=== PATIENT | female | born 1975 | race Caucasian/White ===

== ENCOUNTER 2017-10-28 15:11 | Emergency (ER) | payer BC ==
[2017-10-28] MEDS ORDERED: Sodium Chloride 0.9% 2.5 ML Syringe FLUSH PRN (15:32)
[2017-10-28] MEDS ORDERED: Sodium Chloride 0.9% 10 ML Syringe FLUSH PRN (15:32)
--- NOTE | 2017-10-28 15:32 | EDM.PDOC ---
ED HPI GENERAL MEDICAL PROBLEM - General Chief Complaint: General Stated Complaint: SUGAR LEVEL IS HIGH Time Seen by Provider: 10/28/17 15:27 Source of Information: Reports: Patient History Limitations: Reports: No Limitations - History of Present Illness INITIAL COMMENTS - FREE TEXT/NARRATIVE: HISTORY AND PHYSICAL: []42-year-old female presenting with not feeling well she is short of breath History of Present Illness: []Patient states she had a UTI start on Wednesday and now this is she was treating herself with essential oils She started having nausea and vomited today Patient is complaining of abdominal pain Patient's primary care provider is Liza Osborne nurse practitioner at [facility] Review of Systems: As per history of present illness and below otherwise all systems reviewed and negative. Past medical history: As per history of present illness and as reviewed below otherwise noncontributory. Surgical history: As per history of present illness and as reviewed below otherwise noncontributory. Social history: No reported history of drug or alcohol abuse. Family history: As per history of present illness and as reviewed below otherwise noncontributory. Physical exam: HEENT: Atraumatic, normocehpalic, pupils reactive, negative for conjunctival pallor or scleral icterus, mucous membranes moist, throat clear, neck supple, nontender, trachea midline. Lungs: Clear to auscultation, breath sounds equal bilaterally, chest non tender. Heart: S1S2, regular, negative for clicks, rubs, or JVD. Abdomen: Soft, nondistended, nontender. Negative for masses or hepatossplenmegaly. Negative for costovertebral tenderness. Pelvis: Stable nontender. Genitourinary: Deferred. Rectal: Deferred Extremities: Atraumatic, negative for cords or calf pain. Neurovascular unremarkable. Neuro: Awake, alert, oriented. Cranial nerves II through XII unremarkable. Cerebellum unremarkable. Motor and sensory unremarkable throughout. Exam nonfocal. Discussed this case with our hospitalist Dr. Lux and there are no ICU beds available Has talked to Dr. Hyde at [place] [facility] and he is accepted this patient for care Scans with the patient and her son and then her per telephone the concerns on the acuity level of this patient that she needs to have closer follow-up than what is available here at this establishment. Diagnostics: []CBC CMP UA urine culture amylase lipase Therapeutics: []1 L normal saline Zofran Insulin 10 units subcutaneous Impression: []DKA New-onset diabetes Plan: []Transfer to [facility] Dr. Mejia has accepted patient Definitive disposition and diagnosis as appropriate pending reevaluation and review of above. Onset: Gradual Duration: Day(s): (4) Location: Reports: Generalized Severity: Moderate Improves with: Reports: None Worsens with: Reports: None Associated Symptoms: Reports: Loss of Appetite, Malaise Generalized Pain Score (Numeric/FACES): 8 - Related Data Allergies Allergy/AdvReac Type Severity Reaction Status Date / Time No Known Allergies Allergy Verified 04/13/15 14:09 Home Meds: Home Meds Montelukast [Singulair] 1 tab PO DAILY 04/13/15 [History] carBAMazepine [Carbamazepine ER] 1 tab PO DAILY 04/13/15 [History] Past Medical History Respiratory History: Reports: Asthma Neurological History: Reports: Seizure - Past Surgical History GI Surgical History: Reports: Other (See Below) Female Surgical History: Reports: Section ED ROS GENERAL - Review of Systems Review Of Systems: ROS reveals no pertinent complaints other than HPI. ED EXAM, GENERAL - Physical Exam Exam: See Below (See dictation) Course - Vital Signs Last Recorded V/S: Last Vital Signs Temp 37.0 C 10/28/17 15:20 Pulse 151 H 10/28/17 16:53 Resp 28 H 10/28/17 16:53 BP 161/87 H 10/28/17 16:53 Pulse Ox 95 10/28/17 16:53 - Orders/Labs/Meds Orders: Active Orders 24 hr Category Date Time Status AMYLASE [CHEM] Stat Lab 10/28/17 15:43 Received COMPREHENSIVE METABOLIC PN,CMP [CHEM] Stat Lab 10/28/17 15:43 Received CULTURE URINE [RM] Stat Lab 10/28/17 15:50 Received HCG QUALITATIVE,URINE [URCHEM] Stat Lab 10/28/17 15:50 Ordered LIPASE [CHEM] Stat Lab 10/28/17 15:43 Received UA W/MICROSCOPIC [URIN] Stat Lab 10/28/17 15:32 Ordered Insulin Regular, Human [NovoLIN R] 100 unit Med 10/28/17 17:15 Ordered Sodium Chloride 0.9% [Normal Saline] 99 ml IV TITRATE Sodium Chloride 0.9% [Normal Saline] 1,000 ml Med 10/28/17 16:41 Active IV STAT Sodium Chloride 0.9% [Saline Flush] Med 10/28/17 15:32 Active 10 ml FLUSH ASDIRECTED PRN Sodium Chloride 0.9% [Saline Flush] Med 10/28/17 15:32 Active 2.5 ml FLUSH ASDIRECTED PRN Saline Lock Insert [OM.PC] Stat Oth 10/28/17 15:32 Ordered Medication Orders Sodium Chloride (Normal Saline) 1,000 mls @ 999 mls/hr IV STAT ONE Stop: 10/28/17 17:41 Last Admin: 10/28/17 16:52 Dose: 999 mls/hr Insulin Human Regular 100 unit (/ Sodium Chloride) 100 mls @ 8.43 mls/hr IV TITRATE LISA; Protocol Sodium Chloride (Saline Flush) 10 ml FLUSH ASDIRECTED PRN PRN Reason: Keep Vein Open Last Admin: 10/28/17 15:40 Dose: 10 ml Sodium Chloride (Saline Flush) 2.5 ml FLUSH ASDIRECTED PRN PRN Reason: Keep Vein Open Last Admin: 10/28/17 15:40 Dose: 2.5 ml Labs: Laboratory Tests 10/28/17 10/28/17 10/28/17 Range/Units 15:22 15:32 15:43 WBC 20.48 H (4.0-11.0) K/uL RBC 5.04 (4.30-5.90) M/uL Hgb 17.1 H (12.0-16.0) g/dL Hct 47.5 H (36.0-46.0) % MCV 94.2 (80.0-98.0) fL MCH 33.9 H (27.0-32.0) pg MCHC 36.0 (31.0-37.0) g/dL RDW Std Deviation 45.3 (28.0-62.0) fl RDW Coeff of Shwetha 13 (11.0-15.0) % Plt Count 300 (150-400) K/uL MPV 12.20 H (7.40-12.00) fL Add Manual Diff YES Neutrophils % (Manual) 85 H (48.0-80.0) % Lymphocytes % (Manual) 12 L (16.0-40.0) % Monocytes % (Manual) 3 (0.0-15.0) % Nucleated RBC % 0.0 /100WBC Absolute Seg Neuts 17.4 H (1.4-5.7) Lymphocytes # (Manual) 2.5 H (0.6-2.4) Monocytes # (Manual) 0.6 (0.0-0.8) Nucleated RBCs # 0 K/uL ABG pH (7.35-7.45) ABG pCO2 (35-45) mmHG ABG pO2 (75-100) mmHG ABG HCO3 (22-26) mEq/L ABG Total CO2 ABG Base Excess (-2.0-2.0) Sodium (136-145) mmol/L Potassium (3.5-5.1) mmol/L Chloride (98-107) mmol/L Carbon Dioxide (21.0-32.0) mmol/L BUN (7.0-18.0) mg/dL Creatinine (0.6-1.0) mg/dL Est Cr Clr Drug Dosing mL/min Estimated GFR (MDRD) ml/min Glucose (74-106) mg/dL POC Glucose 458 H (60-110) mg/dL Calcium (8.5-10.1) mg/dL Total Bilirubin (0.2-1.0) mg/dL AST (15-37) IU/L Alkaline Phosphatase (46-116) U/L Total Protein (6.4-8.2) g/dL Albumin (3.4-5.0) g/dL Globulin (2.0-3.5) g/dL Albumin/Globulin Ratio (1.3-2.8) Amylase (25-115) U/L Lipase (73-393) U/L Urine Color YELLOW Urine Appearance CLEAR Urine pH 5.5 (5.0-8.0) Ur Specific Keyser >= 1.030 (1.001-1.035) Urine Protein 100 (NEGATIVE) mg/dL Urine Glucose (UA) 500 H (NEGATIVE) mg/dL Urine Ketones >=80 (NEGATIVE) mg/dL Urine Occult Blood MODERATE (NEGATIVE) Urine Nitrite NEGATIVE (NEGATIVE) Urine Bilirubin SMALL H (NEGATIVE) Urine Ictotest NEGATIVE Urine Urobilinogen 0.2 (<2.0) EU/dL Ur Leukocyte Esterase NEGATIVE (NEGATIVE) Urine RBC 0-2 (0-2/HPF) Urine WBC 1-2 (0-5/HPF) Ur Epithelial Cells OCCASIONAL (NONE-FEW) Urine Bacteria FEW (NEGATIVE) Urine HCG, Qual (NEGATIVE) 10/28/17 10/28/17 10/28/17 Range/Units 15:43 15:50 16:15 WBC (4.0-11.0) K/uL RBC (4.30-5.90) M/uL Hgb (12.0-16.0) g/dL Hct (36.0-46.0) % MCV (80.0-98.0) fL MCH (27.0-32.0) pg MCHC (31.0-37.0) g/dL RDW Std Deviation (28.0-62.0) fl RDW Coeff of Shwetha (11.0-15.0) % Plt Count (150-400) K/uL MPV (7.40-12.00) fL Add Manual Diff Neutrophils % (Manual) (48.0-80.0) % Lymphocytes % (Manual) (16.0-40.0) % Monocytes % (Manual) (0.0-15.0) % Nucleated RBC % /100WBC Absolute Seg Neuts (1.4-5.7) Lymphocytes # (Manual) (0.6-2.4) Monocytes # (Manual) (0.0-0.8) Nucleated RBCs # K/uL ABG pH 7.064 L* (7.35-7.45) ABG pCO2 12 L (35-45) mmHG ABG pO2 133 H (75-100) mmHG ABG HCO3 3 L (22-26) mEq/L ABG Total CO2 3.3 ABG Base Excess -24.5 L (-2.0-2.0) Sodium 129 L (136-145) mmol/L Potassium 5.5 H (3.5-5.1) mmol/L Chloride 93 L (98-107) mmol/L Carbon Dioxide 4.2 L (21.0-32.0) mmol/L BUN 17 (7.0-18.0) mg/dL Creatinine 1.2 H (0.6-1.0) mg/dL Est Cr Clr Drug Dosing 47.81 mL/min Estimated GFR (MDRD) 49.0 ml/min Glucose 511 H* (74-106) mg/dL POC Glucose (60-110) mg/dL Calcium 10.5 H (8.5-10.1) mg/dL Total Bilirubin 0.7 (0.2-1.0) mg/dL AST 25 (15-37) IU/L Alkaline Phosphatase 159 H (46-116) U/L Total Protein 8.8 H (6.4-8.2) g/dL Albumin 4.2 (3.4-5.0) g/dL Globulin 4.6 H (2.0-3.5) g/dL Albumin/Globulin Ratio 0.9 L (1.3-2.8) Amylase 117 H (25-115) U/L Lipase 1845 H (73-393) U/L Urine Color Urine Appearance Urine pH (5.0-8.0) Ur Specific Keyser (1.001-1.035) Urine Protein (NEGATIVE) mg/dL Urine Glucose (UA) (NEGATIVE) mg/dL Urine Ketones (NEGATIVE) mg/dL Urine Occult Blood (NEGATIVE) Urine Nitrite (NEGATIVE) Urine Bilirubin (NEGATIVE) Urine Ictotest Urine Urobilinogen (<2.0) EU/dL Ur Leukocyte Esterase (NEGATIVE) Urine RBC (0-2/HPF) Urine WBC (0-5/HPF) Ur Epithelial Cells (NONE-FEW) Urine Bacteria (NEGATIVE) Urine HCG, Qual NEGATIVE (NEGATIVE) Meds: Medications Generic Name Dose Route Start Last Admin Trade Name Freq PRN Reason Stop Dose Admin Sodium Chloride 1,000 mls @ 999 mls/hr 10/28/17 16:41 10/28/17 16:52 Normal Saline IV 10/28/17 17:41 999 mls/hr STAT ONE Administration Insulin Human Regular 100 unit 100 mls @ 8.43 mls/hr 10/28/17 17:15 / Sodium Chloride IV TITRATE LISA Protocol 0.1 UNIT/KG/HR Sodium Chloride 10 ml 10/28/17 15:32 10/28/17 15:40 Saline Flush FLUSH 10 ml ASDIRECTED PRN Administration Keep Vein Open Sodium Chloride 2.5 ml 10/28/17 15:32 10/28/17 15:40 Saline Flush FLUSH 2.5 ml ASDIRECTED PRN Administration Keep Vein Open Discontinued Medications Generic Name Dose Route Start Last Admin Trade Name Freq PRN Reason Stop Dose Admin Sodium Chloride 1,000 mls @ 999 mls/hr 10/28/17 15:37 10/28/17 15:40 Normal Saline IV 10/28/17 16:37 999 mls/hr STAT ONE Administration Piperacillin Sod/Tazobactam 50 mls @ 100 mls/hr 10/28/17 16:26 10/28/17 16:58 Sod 3.375 gm/ Sodium Chloride IV 10/28/17 16:55 100 mls/hr ONETIME ONE Administration Insulin Human Regular 10 unit 10/28/17 16:14 10/28/17 16:24 Novolin R IVPUSH 10/28/17 16:15 10 units ONETIME ONE Administration Protocol Insulin Human Regular 10 unit 10/28/17 16:56 Novolin R IVPUSH 10/28/17 16:57 ONETIME ONE Protocol Ondansetron HCl 4 mg 10/28/17 15:37 10/28/17 15:43 Zofran IVPUSH 10/28/17 15:38 4 mg ONETIME ONE Administration Departure - Departure Time of Disposition: 17:18 Disposition: DC/Tfer to Acute Hospital 02 Condition: Fair Clinical Impression: Ketoacidosis in diabetes mellitus - Discharge Information Referrals: PCP,None [Primary Care Provider] - Forms: ED Department Discharge - My Orders Last 24 Hours: My Active Orders 10/28/17 15:32 UA W/MICROSCOPIC [URIN] Stat Sodium Chloride 0.9% [Saline Flush] 10 ml FLUSH ASDIRECTED PRN Sodium Chloride 0.9% [Saline Flush] 2.5 ml FLUSH ASDIRECTED PRN Saline Lock Insert [OM.PC] Stat 10/28/17 15:43 AMYLASE [CHEM] Stat COMPREHENSIVE METABOLIC PN,CMP [CHEM] Stat LIPASE [CHEM] Stat 10/28/17 15:50 CULTURE URINE [RM] Stat HCG QUALITATIVE,URINE [URCHEM] Stat 10/28/17 16:41 Sodium Chloride 0.9% [Normal Saline] 1,000 ml IV STAT 10/28/17 17:15 Insulin Regular, Human [NovoLIN R] 100 unit Sodium Chloride 0.9% [Normal Saline] 99 ml IV TITRATE - Assessment/Plan Last 24 Hours: My Active Orders 10/28/17 15:32 UA W/MICROSCOPIC [URIN] Stat Sodium Chloride 0.9% [Saline Flush] 10 ml FLUSH ASDIRECTED PRN Sodium Chloride 0.9% [Saline Flush] 2.5 ml FLUSH ASDIRECTED PRN Saline Lock Insert [OM.PC] Stat 10/28/17 15:43 AMYLASE [CHEM] Stat COMPREHENSIVE METABOLIC PN,CMP [CHEM] Stat LIPASE [CHEM] Stat 10/28/17 15:50 CULTURE URINE [RM] Stat HCG QUALITATIVE,URINE [URCHEM] Stat 10/28/17 16:41 Sodium Chloride 0.9% [Normal Saline] 1,000 ml IV STAT 10/28/17 17:15 Insulin Regular, Human [NovoLIN R] 100 unit Sodium Chloride 0.9% [Normal Saline] 99 ml IV TITRATE
[2017-10-28] MEDS ORDERED: Ondansetron 4 MG/2 ML SDV IVPUSH ONE ×2 (15:37→17:48)
[2017-10-28] MEDS ORDERED: Sodium Chloride 0.9% 1,000 ML IV ONE ×2 (15:37→16:41)
[2017-10-28] MEDS ORDERED: Insulin Regular, Human 100 Units/ML 10 ML Vial IVPUSH ONE ×2 (16:14→16:56)
--- NOTE | 2017-10-28 16:20 | CR ---
EXAMINATION: Two-view chest (PA and Lateral views). HISTORY: Shortness of breath. FINDINGS: The trachea is midline. The cardiomediastinal silhouette is within normal limits. No pulmonary infilt rates, effusions or pneumothorax. Osseous structures appear unremarkable. IMPRESSION: No acute cardiopulmonary process.
[2017-10-28] MEDS ORDERED: Piperacillin/Tazobactam 3.375 GM in Sodium Chloride 0.9% 50 ML IV ONE (16:26)
[2017-10-28 16:55] VITALS: BP 161/87
[2017-10-28] MEDS ORDERED: Ondansetron 4 MG/2 ML SDV ONE (17:45)
== END 2017-10-28 17:49 ==
LOC: MW.ED 15:11
DX: E11.10 Type 2 diabetes mellitus with ketoacidosis without coma (principal); J45.909 Unspecified asthma, uncomplicated; Z79.899 Other long term (current) drug therapy
CPT/HCPCS: 36415; 36600; 71046; 80053; 81001; 81025; 82150; 82803; 82962; 83690; 85025; 87086; 93005; 96361; 96365; 96375; 99285; J2405; J2543; J7040; J7050; J1815-GY